=== PATIENT | male | born 1960 | race Caucasian/White ===

== ENCOUNTER 2021-07-31 07:28 | Inpatient (IN) | payer OTHER ==
[2021-07-31] VITALS (11 sets, daily range): BP systolic 112–142; BP diastolic 53–92
[~2021-07-31] VITALS: Ht 170.1 cm; Wt 104.0 kg
[~2021-07-31 07:28] MED LIST: PRILOSEC20 MG PO; VICODIN 5/500 505 MG PO; ZOCOR40 MG PO
[2021-07-31] MEDS ORDERED: MUCINEX100 MG PO (07:44)
[2021-07-31] MEDS ORDERED: AMOXICILLIN875 MG PO (07:45)
[2021-07-31] MEDS ORDERED: SIMVASTATIN20 MG PO (07:45)
[2021-07-31] MEDS ORDERED: HYDR25T PO (07:45)
[2021-07-31] MEDS ORDERED: LISINOPRIL20 MG PO (07:45)
[2021-07-31 08:19] LABS: HEMATOCRIT 36.3 % (42.0-52.0); MEAN CELL VOLUME 82.7 fl (80.0-94.0); MEAN CORPUSCULAR HGB 27.3 pg (27.0-31.0); MEAN CORPUSCULAR HGB CONC 33.1 g/dl (33.0-37.0); MEAN PLATELET VOLUME 9.2 fl (9.6-12.3); NUCLEATED RED BLOOD CELL 0.2 % (0.0-0.0); PLATELET COUNT AUTOMATED 434 10*3/uL (130-400); RED BLOOD COUNT 4.39 10*6/uL (4.50-5.90); WHITE BLOOD COUNT 18.1 10*3/uL (4.8-10.8)
[2021-07-31 08:36] LABS: ALBUMIN 1.8 gm/dl (3.1-4.5); ALKALINE PHOSPHATASE 81 U/L (45-117); BUN 30 mg/dl (7-24); CHLORIDE 103 mmol/L (98-107); CPK 144 U/L (39-308); CREATININE 1.13 mg/dL (0.70-1.30); POTASSIUM 4.1 mmol/L (3.5-5.1); SGOT/AST 63 IU/L (3-35); SGPT/ALT 44 U/L (12-78); SODIUM 137 mmol/L (136-145); TOTAL PROTEIN 7.4 gm/dL (6.4-8.2)
[2021-07-31 08:38] LABS: ACT PARTIAL THROMBO TIME 28.4 SECONDS (20.0-32.1); INTERNATIONAL NORM RATIO 1.1 (2.0-3.5)
[2021-07-31 08:51] LABS: TROPONIN I 0.413 ng/ml (<0.045)
[2021-07-31 08:51] LABS: BILIRUBIN Negative (Negative); BLOOD 1+ (Negative); CLARITY Clear (Clear); COLOR Dark Yellow (Yellow); GLUCOSE Negative (Negative); KETONE Trace (Negative); LEUKO ESTERASE Negative (Negative); NITRITE Negative (Negative); PH 5.5 (4.5-8.0); SPECIFIC GRAVITY >= 1.030 (1.001-1.030)
[2021-07-31 08:53] LABS: ATYPICAL LYMPHS 1 % (0-0); BURR CELLS FEW; PLATELET SUFFICIENCY HIGH (NORMAL); POLYCHROMASIA SLIGHT; SCHISTOCYTES FEW; TOTAL CELLS COUNTED 100 #CELLS
[2021-07-31 09:17] LABS: BACTERIA 1+; MUCOUS 1+
[2021-07-31 09:38] LABS: ABG BASE EXCESS -0.2 mmol/L (-2.0-2.0); ARTERIAL BLOOD GAS PH 7.463 (7.35-7.45); ARTERIAL BLOOD GAS PO2 166.2 (80-90)
[2021-07-31 18:11] LABS: ABG BASE EXCESS -2.1 mmol/L (-2.0-2.0); ARTERIAL BLOOD GAS PH 7.44 (7.35-7.45); ARTERIAL BLOOD GAS PO2 91.4 (80-90)
[2021-08-01] VITALS (14 sets, daily range): BP systolic 107–166; BP diastolic 60–88
[2021-08-01 08:04] LABS: HEMATOCRIT 36.9 % (42.0-52.0); MEAN CORPUSCULAR HGB 27.2 pg (27.0-31.0); MEAN PLATELET VOLUME 9.3 fl (9.6-12.3); NUCLEATED RED BLOOD CELL 0.1 % (0.0-0.0); PLATELET COUNT AUTOMATED 433 10*3/uL (130-400); RED BLOOD COUNT 4.34 10*6/uL (4.50-5.90); RED CELL DISTRI WIDTH 14.3 % (0-14.5); WHITE BLOOD COUNT 26.7 10*3/uL (4.8-10.8)
[2021-08-01 08:21] LABS: ALBUMIN 1.6 gm/dl (3.1-4.5); ALKALINE PHOSPHATASE 118 U/L (45-117); BUN 39 mg/dl (7-24); CHLORIDE 108 mmol/L (98-107); CHOLESTEROL 122 mg/dL (<200); CPK 112 U/L (39-308); CREATININE 0.91 mg/dL (0.70-1.30); FREE T4 1.25 ng/dl (0.76-1.46); LDL CHOLESTEROL 47 mg/dL (9-159); POTASSIUM 4.1 mmol/L (3.5-5.1); SGOT/AST 82 IU/L (3-35); SGPT/ALT 59 U/L (12-78); SODIUM 139 mmol/L (136-145); TOTAL PROTEIN 7.3 gm/dL (6.4-8.2); TRIGLYCERIDES 323 mg/dl (<150)
[2021-08-01 08:27] LABS: THYROID STIM HORMONE (HS) 0.789 uIU/ml (0.358-4.75)
[2021-08-01 08:31] LABS: ARTERIAL BLOOD GAS PH 7.51 (7.35-7.45)
[2021-08-01 08:37] LABS: ATYPICAL LYMPHS 1 % (0-0); BURR CELLS FEW; PLATELET SUFFICIENCY HIGH (NORMAL); POLYCHROMASIA SLIGHT; ROULEAUX SLIGHT; TOTAL CELLS COUNTED 100 #CELLS
[2021-08-01 09:38] LABS: VITAMIN D, 25-HYDROXY 38.3 ng/mL (30-100)
[2021-08-01] MEDS ORDERED: GOOD SENSE ASPI81 M1 PO (18:31)
[2021-08-01] MEDS ORDERED: PRILOSEC20 M1 PO (18:31)
[2021-08-02] VITALS: BP 143/77
[2021-08-02 04:00] VITALS: BP 140/69
[2021-08-02 05:50] LABS: ALBUMIN 1.5 gm/dl (3.1-4.5); BUN 37 mg/dl (7-24); CHLORIDE 111 mmol/L (98-107); CREATININE 0.82 mg/dL (0.70-1.30); POTASSIUM 4.6 mmol/L (3.5-5.1); SGOT/AST 69 IU/L (3-35); SGPT/ALT 58 U/L (12-78); SODIUM 142 mmol/L (136-145); TOTAL PROTEIN 6.8 gm/dL (6.4-8.2)
[2021-08-02 05:56] LABS: ALKALINE PHOSPHATASE 168 U/L (45-117)
[2021-08-02 06:01] LABS: CPK 71 U/L (39-308)
[2021-08-02 06:20] LABS: HEMATOCRIT 29.8 % (42.0-52.0); MEAN CELL VOLUME 84.9 fl (80.0-94.0); MEAN CORPUSCULAR HGB 27.4 pg (27.0-31.0); MEAN CORPUSCULAR HGB CONC 32.2 g/dl (33.0-37.0); MEAN PLATELET VOLUME 9.6 fl (9.6-12.3); PLATELET COUNT AUTOMATED 403 10*3/uL (130-400); RED BLOOD COUNT 3.51 10*6/uL (4.50-5.90); RED CELL DISTRI WIDTH 14.3 % (0-14.5); WHITE BLOOD COUNT 25.1 10*3/uL (4.8-10.8)
[2021-08-02 07:39] LABS: BURR CELLS FEW; OVALOCYTES FEW; PLATELET SUFFICIENCY HIGH (NORMAL); POLYCHROMASIA SLIGHT; TOTAL CELLS COUNTED 100 #CELLS
[2021-08-02 07:40] LABS: ROULEAUX SLIGHT; TARGET CELLS FEW
[2021-08-02 08:00] VITALS: BP 138/78
[2021-08-02 12:00] VITALS: BP 130/61
[2021-08-02 16:00] VITALS: BP 169/90
[2021-08-02 20:00] VITALS: BP 118/65
[2021-08-03] VITALS: BP 133/77
[2021-08-03 04:00] VITALS: BP 116/68
[2021-08-03 05:44] LABS: ALBUMIN 1.4 gm/dl (3.1-4.5); ALKALINE PHOSPHATASE 235 U/L (45-117); BUN 36 mg/dl (7-24); CHLORIDE 114 mmol/L (98-107); CPK 72 U/L (39-308); CREATININE 0.72 mg/dL (0.70-1.30); POTASSIUM 4.4 mmol/L (3.5-5.1); SGOT/AST 50 IU/L (3-35); SGPT/ALT 50 U/L (12-78); SODIUM 142 mmol/L (136-145); TOTAL PROTEIN 6.5 gm/dL (6.4-8.2)
[2021-08-03 05:52] LABS: LDH 1011 U/L (87-241)
[2021-08-03 06:04] LABS: MEAN CELL VOLUME 86.1 fl (80.0-94.0); MEAN CORPUSCULAR HGB 27.3 pg (27.0-31.0); MEAN CORPUSCULAR HGB CONC 31.7 g/dl (33.0-37.0); MEAN PLATELET VOLUME 9.6 fl (9.6-12.3); PLATELET COUNT AUTOMATED 320 10*3/uL (130-400); RED BLOOD COUNT 4.18 10*6/uL (4.50-5.90); RED CELL DISTRI WIDTH 14.7 % (0-14.5); WHITE BLOOD COUNT 29.5 10*3/uL (4.8-10.8)
[2021-08-03 07:52] LABS: ABG BASE EXCESS 0.1 mmol/L (-2.0-2.0); ARTERIAL BLOOD GAS PH 7.468 (7.35-7.45)
[2021-08-03 08:00] VITALS: BP 130/73
[2021-08-03 09:49] LABS: PLATELET SUFFICIENCY NORMAL (NORMAL); TOTAL CELLS COUNTED 100 #CELLS
[2021-08-03 12:00] VITALS: BP 118/60
[2021-08-03 16:00] VITALS: BP 125/81
[2021-08-03 20:00] VITALS: BP 107/83
[2021-08-04] VITALS: BP 152/64
[2021-08-04 04:00] VITALS: BP 146/71
[2021-08-04 06:00] LABS: MEAN CELL VOLUME 85.3 fl (80.0-94.0); MEAN CORPUSCULAR HGB CONC 31.7 g/dl (33.0-37.0); MEAN PLATELET VOLUME 9.9 fl (9.6-12.3); PLATELET COUNT AUTOMATED 234 10*3/uL (130-400); RED BLOOD COUNT 4.22 10*6/uL (4.50-5.90); RED CELL DISTRI WIDTH 15.2 % (0-14.5); WHITE BLOOD COUNT 31.9 10*3/uL (4.8-10.8)
[2021-08-04 06:31] LABS: ALBUMIN 1.6 gm/dl (3.1-4.5); ALKALINE PHOSPHATASE 252 U/L (45-117); BUN 43 mg/dl (7-24); CHLORIDE 117 mmol/L (98-107); CREATININE 0.89 mg/dL (0.70-1.30); POTASSIUM 4.8 mmol/L (3.5-5.1); SGOT/AST 59 IU/L (3-35); SGPT/ALT 54 U/L (12-78); SODIUM 145 mmol/L (136-145); TOTAL PROTEIN 6.7 gm/dL (6.4-8.2)
[2021-08-04 06:48] LABS: PLATELET SUFFICIENCY NORMAL (NORMAL); SCHISTOCYTES FEW; TOTAL CELLS COUNTED 100 #CELLS
[2021-08-04 06:53] LABS: LDH 1240 U/L (87-241)
[2021-08-04 07:44] LABS: ABG BASE EXCESS 0.2 mmol/L (-2.0-2.0); ARTERIAL BLOOD GAS PH 7.441 (7.35-7.45); ARTERIAL BLOOD GAS PO2 63.5 (80-90)
[2021-08-04 12:00] VITALS: BP 155/79
[2021-08-04 16:00] VITALS: BP 114/46
[2021-08-04 20:00] VITALS: BP 115/52
[2021-08-05] VITALS (7 sets, daily range): BP systolic 114–132; BP diastolic 63–83
[2021-08-05 06:26] LABS: HEMATOCRIT 35.9 % (42.0-52.0); MEAN CELL VOLUME 84.9 fl (80.0-94.0); MEAN CORPUSCULAR HGB CONC 31.8 g/dl (33.0-37.0); MEAN PLATELET VOLUME 10.5 fl (9.6-12.3); PLATELET COUNT AUTOMATED 216 10*3/uL (130-400); RED BLOOD COUNT 4.23 10*6/uL (4.50-5.90); RED CELL DISTRI WIDTH 15.4 % (0-14.5); WHITE BLOOD COUNT 29.5 10*3/uL (4.8-10.8)
[2021-08-05 06:29] LABS: ALBUMIN 1.5 gm/dl (3.1-4.5); ALKALINE PHOSPHATASE 223 U/L (45-117); CHLORIDE 121 mmol/L (98-107); CPK 376 U/L (39-308); CREATININE 1.05 mg/dL (0.70-1.30); POTASSIUM 4.7 mmol/L (3.5-5.1); SGOT/AST 52 IU/L (3-35); SGPT/ALT 51 U/L (12-78); SODIUM 152 mmol/L (136-145); TOTAL PROTEIN 6.8 gm/dL (6.4-8.2)
[2021-08-05 07:03] LABS: BUN 60 mg/dl (7-24)
[2021-08-05 07:05] LABS: LDH 1065 U/L (87-241)
[2021-08-05 07:34] LABS: ABG BASE EXCESS 1.9 mmol/L (-2.0-2.0); ARTERIAL BLOOD GAS PH 7.434 (7.35-7.45); ARTERIAL BLOOD GAS PO2 72.3 (80-90)
[2021-08-05 08:03] LABS: PLATELET SUFFICIENCY NORMAL (NORMAL); SCHISTOCYTES FEW; SPHEROCYTES FEW; TARGET CELLS FEW; TOTAL CELLS COUNTED 100 #CELLS; TOXIC GRANULATION SLIGHT
[2021-08-06 03:37] VITALS: BP 143/78
[2021-08-06 06:09] LABS: ALBUMIN 1.5 gm/dl (3.1-4.5); ALKALINE PHOSPHATASE 237 U/L (45-117); BUN 63 mg/dl (7-24); CHLORIDE 126 mmol/L (98-107); CREATININE 0.99 mg/dL (0.70-1.30); POTASSIUM 4.4 mmol/L (3.5-5.1); SGOT/AST 48 IU/L (3-35); SGPT/ALT 51 U/L (12-78); SODIUM 157 mmol/L (136-145); TOTAL PROTEIN 6.9 gm/dL (6.4-8.2)
[2021-08-06 06:17] LABS: HEMATOCRIT 37.7 % (42.0-52.0); MEAN CELL VOLUME 86.1 fl (80.0-94.0); MEAN CORPUSCULAR HGB 26.7 pg (27.0-31.0); MEAN PLATELET VOLUME 11.4 fl (9.6-12.3); PLATELET COUNT AUTOMATED 245 10*3/uL (130-400); RED BLOOD COUNT 4.38 10*6/uL (4.50-5.90); RED CELL DISTRI WIDTH 15.4 % (0-14.5); WHITE BLOOD COUNT 31.3 10*3/uL (4.8-10.8)
[2021-08-06 06:21] LABS: LDH 1052 U/L (87-241)
[2021-08-06 07:08] LABS: BURR CELLS FEW; PLATELET SUFFICIENCY NORMAL (NORMAL); POLYCHROMASIA SLIGHT; SCHISTOCYTES FEW; TOTAL CELLS COUNTED 100 #CELLS
[2021-08-06 08:00] VITALS: BP 165/84
[2021-08-06 10:14] LABS: ARTERIAL BLOOD GAS PH 7.42 (7.35-7.45); ARTERIAL BLOOD GAS PO2 91.4 (80-90)
[2021-08-06 12:00] VITALS: BP 128/39
[2021-08-06 16:00] VITALS: BP 145/80
[2021-08-06 18:36] LABS: BUN 58 mg/dl (7-24); CREATININE 0.99 mg/dL (0.70-1.30); POTASSIUM 4.4 mmol/L (3.5-5.1); SODIUM 159 mmol/L (136-145)
[2021-08-06 18:48] LABS: CHLORIDE 127 mmol/L (98-107)
[2021-08-06 20:00] VITALS: BP 104/44
[2021-08-07] VITALS (16 sets, daily range): BP systolic 90–204; BP diastolic 56–109
[2021-08-07 05:17] LABS: ALBUMIN 1.4 gm/dl (3.1-4.5); ALKALINE PHOSPHATASE 187 U/L (45-117); BUN 53 mg/dl (7-24); CHLORIDE 122 mmol/L (98-107); CREATININE 0.93 mg/dL (0.70-1.30); LDH 915 U/L (87-241); POTASSIUM 4.6 mmol/L (3.5-5.1); SGOT/AST 37 IU/L (3-35); SGPT/ALT 39 U/L (12-78); SODIUM 152 mmol/L (136-145)
[2021-08-07 06:07] LABS: MEAN CELL VOLUME 88.7 fl (80.0-94.0); MEAN CORPUSCULAR HGB 27.2 pg (27.0-31.0); MEAN CORPUSCULAR HGB CONC 30.6 g/dl (33.0-37.0); MEAN PLATELET VOLUME 11.4 fl (9.6-12.3); RED BLOOD COUNT 3.72 10*6/uL (4.50-5.90); RED CELL DISTRI WIDTH 15.4 % (0-14.5); WHITE BLOOD COUNT 20.8 10*3/uL (4.8-10.8)
[2021-08-07 06:27] LABS: TOTAL PROTEIN 6.4 gm/dL (6.4-8.2)
[2021-08-07 06:44] LABS: PLATELET COUNT AUTOMATED 165 10*3/uL (130-400)
[2021-08-07 07:07] LABS: TOTAL CELLS COUNTED 100 #CELLS
[2021-08-07 07:08] LABS: BURR CELLS MODERATE; PLATELET SUFFICIENCY NORMAL (NORMAL); POLYCHROMASIA SLIGHT; ROULEAUX SLIGHT; SCHISTOCYTES MODERATE; TARGET CELLS FEW
[2021-08-07 14:21] LABS: ABG BASE EXCESS -1.8 mmol/L (-2.0-2.0); ARTERIAL BLOOD GAS PH 7.401 (7.35-7.45); ARTERIAL BLOOD GAS PO2 57.8 (80-90)
[2021-08-08] VITALS (69 sets, daily range): BP systolic 70–147; BP diastolic 41–68
[2021-08-08 01:17] LABS: ARTERIAL BLOOD GAS PO2 194.4 (80-90)
[2021-08-08 01:19] LABS: ABG BASE EXCESS -7.6 mmol/L (-2.0-2.0); ARTERIAL BLOOD GAS PH 7.161 (7.35-7.45)
[2021-08-08 04:19] LABS: ARTERIAL BLOOD GAS PO2 99.4 (80-90)
[2021-08-08 04:21] LABS: ABG BASE EXCESS -6.8 mmol/L (-2.0-2.0); ARTERIAL BLOOD GAS PH 7.193 (7.35-7.45)
[2021-08-08 05:33] LABS: CREATININE 2.54 mg/dL (0.70-1.30)
[2021-08-08 05:49] LABS: POTASSIUM 6.2 mmol/L (3.5-5.1)
[2021-08-08 06:55] LABS: ARTERIAL BLOOD GAS PH 7.294 (7.35-7.45); ARTERIAL BLOOD GAS PO2 87.1 (80-90)
[2021-08-08 06:56] LABS: ABG BASE EXCESS -6.4 mmol/L (-2.0-2.0)
[2021-08-08 12:16] LABS: CREATININE 3.06 mg/dL (0.70-1.30); POTASSIUM 5.4 mmol/L (3.5-5.1)
[2021-08-08 12:22] LABS: HEMATOCRIT 33.2 % (42.0-52.0); MEAN CELL VOLUME 91.5 fl (80.0-94.0); MEAN CORPUSCULAR HGB CONC 29.5 g/dl (33.0-37.0); MEAN PLATELET VOLUME 11.6 fl (9.6-12.3); NUCLEATED RED BLOOD CELL 0.1 % (0.0-0.0); NUCLEATED RED BLOOD CELL 0.1 10*3/uL (0.0-0.0); RED BLOOD COUNT 3.63 10*6/uL (4.50-5.90); RED CELL DISTRI WIDTH 15.8 % (0-14.5)
[2021-08-08 12:26] LABS: PLATELET COUNT AUTOMATED 216 10*3/uL (130-400)
[2021-08-08 12:28] LABS: WHITE BLOOD COUNT 42.2 10*3/uL (4.8-10.8)
[2021-08-08 13:32] LABS: BURR CELLS MODERATE; SCHISTOCYTES FEW; TOTAL CELLS COUNTED 100 #CELLS
[2021-08-08 13:33] LABS: PLATELET SUFFICIENCY NORMAL (NORMAL); TOXIC GRANULATION SLIGHT; VACUOLATION OF NEUTROPHILS SLIGHT
[2021-08-08 15:35] LABS: ALBUMIN 1.4 gm/dl (3.1-4.5); CREATININE 3.13 mg/dL (0.70-1.30); POTASSIUM 5.5 mmol/L (3.5-5.1)
[2021-08-08 17:01] LABS: ABG BASE EXCESS -10.4 mmol/L (-2.0-2.0); ARTERIAL BLOOD GAS PH 7.157 (7.35-7.45)
[2021-08-09] VITALS (69 sets, daily range): BP systolic 61–98; BP diastolic 18–59
[2021-08-09 05:55] LABS: HEMATOCRIT 38.4 % (42.0-52.0); MEAN CORPUSCULAR HGB 27.3 pg (27.0-31.0); MEAN CORPUSCULAR HGB CONC 28.4 g/dl (33.0-37.0); MEAN PLATELET VOLUME 11.7 fl (9.6-12.3); NUCLEATED RED BLOOD CELL 0.1 10*3/uL (0.0-0.0); NUCLEATED RED BLOOD CELL 0.2 % (0.0-0.0); PLATELET COUNT AUTOMATED 244 10*3/uL (130-400); RED CELL DISTRI WIDTH 16.1 % (0-14.5)
[2021-08-09 06:29] LABS: ALBUMIN 1.6 gm/dl (3.1-4.5); CREATININE 4.42 mg/dL (0.70-1.30)
[2021-08-09 07:11] LABS: BURR CELLS FEW; PLATELET SUFFICIENCY NORMAL (NORMAL); SCHISTOCYTES FEW; TOTAL CELLS COUNTED 100 #CELLS
[2021-08-10 08:08] LABS: HEPATITIS B SURFACE AB Non Reactive (.); HEPATITIS B SURFACE AG Negative (Negative)
== END 2021-08-09 17:25 | DRG 4 ==
LOC: ED 07:28 → EDHOLD 09:30 → ICCU 09:30
PROVIDERS: Emergency Medicine; Internal Medicine; Internal Medicine Critical Care Medicine; Internal Medicine Nephrology; Student in an Organized Health Care Education/Training Program; ADMIT Internal Medicine; ATTEND Internal Medicine
PROC: XW033E5 Introduction of Remdesivir Anti-infective into Peripheral Vein, Percutaneous Approach, New Technology Group 5 (ICD-10-PCS; principal; 2021-07-31)
PROC: 5A09557 Assistance with Respiratory Ventilation, Greater than 96 Consecutive Hours, Continuous Positive Airway Pressure (ICD-10-PCS; 2021-07-31)
PROC: 5A09457 Assistance with Respiratory Ventilation, 24-96 Consecutive Hours, Continuous Positive Airway Pressure (ICD-10-PCS; 2021-08-05)
PROC: 02HV33Z Insertion of Infusion Device into Superior Vena Cava, Percutaneous Approach (ICD-10-PCS; 2021-08-06)
PROC: B548ZZA Ultrasonography of Superior Vena Cava, Guidance (ICD-10-PCS; 2021-08-06)
PROC: 05HC33Z Insertion of Infusion Device into Left Basilic Vein, Percutaneous Approach (ICD-10-PCS; 2021-08-06)
PROC: 5A1945Z Respiratory Ventilation, 24-96 Consecutive Hours (ICD-10-PCS; 2021-08-07)
PROC: 0B110F4 Bypass Trachea to Cutaneous with Tracheostomy Device, Open Approach (ICD-10-PCS; 2021-08-07)
DX: A41.9 Sepsis, unspecified organism (principal); E43 Unspecified severe protein-calorie malnutrition; U07.1 COVID-19; J80 Acute respiratory distress syndrome; J15.9 Unspecified bacterial pneumonia; G93.41 Metabolic encephalopathy; N17.9 Acute kidney failure, unspecified; J98.11 Atelectasis; K21.9 Gastro-esophageal reflux disease without esophagitis; D64.9 Anemia, unspecified; D75.839 Thrombocytosis, unspecified; R65.20 Severe sepsis without septic shock; E87.5 Hyperkalemia; R73.9 Hyperglycemia, unspecified; I10 Essential (primary) hypertension; E78.5 Hyperlipidemia, unspecified; E87.8 Other disorders of electrolyte and fluid balance, not elsewhere classified; E83.41 Hypermagnesemia; Z68.35 Body mass index [BMI] 35.0-35.9, adult